=== PATIENT | male | born 2000 | race Caucasian/White ===

== ENCOUNTER 2023-09-10 00:33 | Emergency (ER) | payer OTHER ==
[2023-09-10 01:15] VITALS: BP 162/84; O2SAT 98
--- NOTE | 2023-09-10 01:46 | XRAY Report ---
PROCEDURE: Shoulder 2+V LT INDICATIONS: pain TECHNIQUE: 3 views of the shoulder were acquired. COMPARISON: None. FINDINGS: Bones: No acute displaced fracture. No dislocation. Soft tissues: No suspicious calcifications. IMPRESSION: No acute osseous abnormality. If there is high concern for further derangement, consider MRI evaluati on. Reviewed by: Bandar Phillips MD on 09/10/2023 1:45 AM PDT Approved by: Bandar Phillips MD on 09/10/2023 1:45 AM PDT Station ID: [id number]
--- NOTE | 2023-09-10 02:16 | ED Physician Documentation ---
PD HPI LOWER EXT INJURY - Stated complaint Stated Complaint: L SHOULDER PX - Chief complaint Chief Complaint: Ext Problem - History obtained from History obtained from: Patient - Additional information Additional information: Patient is a 22-year-old male, active duty [place], presenting for evaluation of left shoulder pain. Patient states that it is intermittently been hurting him over the past year but he has not had it previously evaluated but pain has been worse since Sunday. Patient states he does go to the gym and lifts weights but denies any change in activity. However he states that on Sunday when it was hurting he was pushing through the pain to continue his workout. He did try 100 mg of ibuprofen around 3:00 this afternoon. He is able to move the arm but reports there is discomfort with this. No fall or other injury. Review of Systems Musculoskeletal: reports: Joint pain PD PAST MEDICAL HISTORY - Past Medical History Past Medical History: No - Past Surgical History Past Surgical History: Yes General: Appendectomy - Present Medications Home Medications: Ambulatory Orders Medication Instructions Recorded Confirmed Cyclobenzaprine [Flexeril] 10 mg PO TID PRN #20 tablet 09/10/23 Ibuprofen [Motrin] 800 mg PO Q8H PRN #30 tablet 09/10/23 Lidocaine Patch 5% [Lidoderm Patch] 1 patch TOP DAILY PRN #10 patch 09/10/23 - Allergies Allergies/Adverse Reactions: Allergies Allergy/AdvReac Type Severity Reaction Status Date / Time No Known Drug Allergies Allergy Verified 09/10/23 01:08 - Social History Does the pt smoke?: No Smoking Status: Never smoker Does the pt drink ETOH?: No Does the pt have substance abuse?: No - Immunizations Immunizations are current?: Yes - POLST Patient has POLST: No PD ED PE NORMAL - General General: Alert and oriented X 3, No acute distress, Well developed/nourished - HEENT HEENT: Atraumatic - Neck Neck: Supple, no meningeal sign, No bony TTP - Cardiac Cardiac: RRR, Strong equal pulses - Respiratory Respiratory: No respiratory distress, Clear bilaterally - Back Back: No spinal TTP - Derm Derm: Warm and dry - Extremities Extremities: No deformity, Other (Pain on range of motion of left shoulder, pain past 90 degrees of abduction. Able to touch left hand to right shoulder. Muscle spasm over left trapezius ) Results - Vitals Vitals: Vital Signs - 24 hr 09/10/23 01:04 Temperature 36.5 C Heart Rate 87 Respiratory 14 Rate Blood Pressure 162/84 H O2 Saturation 98 Oxygen O2 Source Room air PD Medical Decision Making - ED course Complexity details: reviewed results, d/w patient ED course: Patient is a 22-year-old with atraumatic left shoulder pain. X-ray which I reviewed is negative for fracture or dislocation. Clinically patient is also able to range of motion the left shoulder albeit with pain. Neurovascularly intact. Muscle spasm of trapezius. Patient does report trying to push through the pain and exercising a few days ago which may have exacerbated his symptoms. Counseled on trial of supportive care with close follow-up at [facility]. Will also place on limited duty to prevent further exacerbation of injury. Departure - Departure Disposition: Home, Self Care Clinical Impression: Left shoulder strain, Muscle spasm Condition: Stable Instructions: ED Spasm Muscle, ED Shoulder Pain [facility] Follow-Up: [facility] [place] [Provider Group] Prescriptions: Cyclobenzaprine [Flexeril] 10 mg PO TID PRN #20 tablet PRN Reason: Spasms Lidocaine Patch 5% [Lidoderm Patch] 1 patch TOP DAILY PRN #10 patch PRN Reason: pain Ibuprofen [Motrin] 800 mg PO Q8H PRN #30 tablet PRN Reason: PAIN &/OR FEVER Comments: Your x-ray does not show signs of a broken bone or dislocation. However there are other structures in the shoulder joint that do not show up well on an x-ray and I would recommend close follow-up at the [facility]. [facility] have [facility] to [facility] [place] including a muscle relaxer, anti- inflammatory and lidocaine patches. We have also given you a sling for comfort but I do also want to get the arm out of the sling several times a day to move it around As you do not want to end up with a frozen shoulder. Forms: PCP List, Activity restrictions Discharge Date/Time: 09/10/23 02:37
[2023-09-10] MEDS: CYCLOBENZAPRINE 10 MG Prepack 2 PO PRN (02:25)
[2023-09-10] MEDS: LIDOCAINE PATCH 5% TOP STA (02:25)
== END 2023-09-10 02:37 | disposition home or self-care (01) ==
LOC: ED 00:33
DX: S46.912A Strain of unspecified muscle, fascia and tendon at shoulder and upper arm level, left arm, initial encounter (principal); M62.838 Other muscle spasm; Y93.B9 Activity, other involving muscle strengthening exercises
CPT/HCPCS: 73030; 99283; A9270